=== PATIENT | male | born 1955 | race Caucasian/White ===

== ENCOUNTER → 2021-01-24 16:41 | Outpatient (CLI) | payer OTHER, SELFPAY ==
--- NOTE | 2021-01-24 16:50 | RAD_ITS ---
INDICATION: HIP PAIN EXAMINATION/TECHNIQUE: X-RAY - BILATERAL XR Hips Bilateral with Pelvis when performed; 2 Views COMPARISON: None. FINDINGS: No acute fracture or malalignment. No blastic or lytic lesions. Severe right and moderate left degenerative changes of the bilateral hips. The soft tissues are unremarkable. RAD/Hips B/L min 2 views w/ Pelvis IMPRESSION: No acute radiographic abnormalities. 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 Electronically Signed: Kenney Danielle MD at 18:59 EDT Tel , Service support ,
== END ==
PROVIDERS: Referring Provider Anesthesiology Pain Medicine; Visit Provider Anesthesiology Pain Medicine
DX: M25.551 Pain in right hip (principal); M25.552 Pain in left hip
CPT/HCPCS: 73521